=== PATIENT | male | born 1960 | race Caucasian/White ===

== ENCOUNTER 2018-05-06 09:42 | Emergency (ER) | payer OTHER ==
[2018-05-06] MEDS ORDERED: NS 0.9% 1000 ML* 2,000 ML IV ONE (10:30)
[2018-05-06] MEDS ORDERED: Ondansetron ODT TAB* 4 MG PO ONE (10:30)
[2018-05-06] MEDS ORDERED: Ketorolac INJ* 30 MG/ML 1 ML VIAL IV ONE (10:30)
[2018-05-06 11:11] LABS: Urine Appearance Clear; Urine Blood 1+ (Negative); Urine Color Yellow; Urine Ketones Negative (Negative); Urine Protein Negative (Negative); Urine Specific Gravity 1.017 (1.010-1.030); Urine Urobilinogen Negative (Negative)
[2018-05-06 11:21] LABS: ABS Basophils 0 10^3/ul (0-0.2); ABS Eosinophils 0.1 10^3/ul (0-0.6); ABS Lymphocytes 2.1 10^3/ul (1.0-4.8); ABS Monocytes 0.6 10^3/ul (0-0.8); ABS Neutrophils 3.5 10^3/ul (1.5-7.7); ABS Nucleated RBC 0 10^3/ul; Eosinophil % 1.7 % (0-6); Hematocrit 38 % (42-52); Hemoglobin 12.7 g/dl (14.0-18.0); Lymphocyte % 32.9 % (25-47); Mean Corpuscular HGB Conc 33 g/dl (31-36); Mean Corpuscular Hemoglobin 29 pg (27-31); Mean Corpuscular Volume 86 fL (80-94); Mean Platelet Volume 8.1 um3 (7.4-10.4); Nucleated Red Blood Cells % 0; Platelet Count 240 10^3/ul (150-450); Red Blood Count 4.43 10^6/ul (4.00-5.40); Red Cell Distribution Width 15 % (10.5-15); White Blood Count 6.4 10^3/ul (3.5-10.8)
[2018-05-06 11:30] LABS: INR 0.91 (0.77-1.02)
[2018-05-06 11:38] LABS: EGFR Non-African American 93.5 (>60)
--- NOTE | 2018-05-06 11:50 | RAD ---
Indication: Left flank pain. CT of the abdomen and pelvis was performed without oral or IV contrast administration. Coronal and sagittal reconstructed images were obtained. Lung bases demonstrate no pleural fluid, or alveolar consolidation. Nodule is noted in the left lower lobe which is not calcified. This measures approximately 3 mm. Large hiatal hernia is noted. Heart demonstrates no pericardial effusion. Liver is normal in size. No focal lesions or intrahepatic ductal dilatation the gallbladder demonstrates no calcified gallstones. No pericholecystic fluid or wall thickening is noted. The spleen is normal in size. No adrenal lesions are noted. No hydronephrosis is noted in either kidney. Cortical cysts are noted in the right kidney. No retroperitoneal lymphadenopathy is noted. Dilated loops of bowel are noted. Atherosclerotic aorta is noted. No aneurysmal dilatation. The colon is filled with stool. The appendix is visualized and is normal. There is diverticulosis without definite evidence of diverticulitis most prominent in the pelvis. The urinary bladder demonstrates diffuse wall thickening. Underlying infection is not totally excluded. No hernias are identified. IMPRESSION: No evidence of obstructive uropathy is noted. Hiatal hernia which appears to be unchanged from previous exam. Left lower lobe nodule which is stable since 2015. Diverticulosis without definite evidence of diverticulitis especially in the sigmoid colon.
[2018-05-06 12:24] VITALS: BP 180/99
--- NOTE | 2018-05-06 16:18 | ED ---
Anusha Quintanilla SooYoung, scribed for Rey Brown MD on 05/06/18 at 1020 . Back Pain - HPI Summary HPI Summary: A 58 y/o M presents to ED with c/o chronic L flank pain ongoing for past 6-8 months ago, with acute onset last week and worsening approximately 0030 this date. Pain did not wake pt from sleep. Pain is rated 8 out of 10 at bedside and is intermittent. Pain located in the LLQ/groin and radiates to L flank and mildly to L testicle. Denies recent trauma, denies urinary and bowel sx including dysuria, hematuria and melena, feeling bloated, nausea. Aggravating factors: movement. Pt has not taken any pain medication today. Pt sees Dr. Garsia, urology. PMHx: bladder CA, kidney stones, hernia. No PMHx diverticulosis. States today's pain does not feel the same as prev kidney stones. Childhood surgeries. No allergies. - History of Current Complaint Chief Complaint: EDFlankPain Stated Complaint: FLANK PAIN Time Seen by Provider: 05/06/18 10:14 Hx Obtained From: Patient Onset/Duration: Still Present Onset/Duration: Started Hours Ago, Atraumatic, Still Present Timing: Intermittent Back Pain Location: Is Discrete @ - LLQ, groin, Radiates To - L flank Severity Currently: Severe Pain Intensity: 8 Pain Scale Used: 0-10 Numeric Aggravating Symptom(s): Movement Associated Signs And Symptoms: Positive: Abdominal Pain, Flank Pain. Negative: Bladder Incontinence, Bowel Incontinence - Allergies/Home Medications Allergies/Adverse Reactions: Allergies Allergy/AdvReac Type Severity Reaction Status Date / Time No Known Allergies Allergy Verified 05/06/18 09:57 Home Medications: Home Medications Esomeprazole Magnesium [Nexium 24Hr] 20 mg PO DAILY 05/06/18 [History Confirmed 05/06/18] PMH/Surg Hx/FS Hx/Imm Hx Previously Healthy: No Endocrine/Hematology History: Denies: Hx Diabetes, Hx Thyroid Disease Cardiovascular History: Denies: Hx Hypertension Respiratory History: Denies: Hx Asthma, Hx Chronic Obstructive Pulmonary Disease (COPD) GI History: Reports: Other GI Disorders - OCCASIONAL INDIGESTION Denies: Hx Ulcer History: Reports: Hx Kidney Stones - HX OF (PASSED), Hx Renal Disease - HEMATURIA, Other Problems/Disorders - CAMCER OF BLADDER Dx 02/04/15 Musculoskeletal History: Reports: Hx Arthritis - HANDS, KNEES Sensory History: Reports: Hx Contacts or Glasses - GLASSES Opthamlomology History: Reports: Hx Contacts or Glasses - GLASSES - Cancer History Cancer Type, Location and Year: bladder cancer - Surgical History Surgery Procedure, Year, and Place: 1970 EXCISION OF SCAR TISSUE IN KIDNEY, [facility]. 1974 OPEN RIGHT KNEE SURGERY FOR TEAR, [facility]. 1978 & 1985 RIGHT SHOULDER SURGERY, [facility], 2 bladder surgeries Hx Anesthesia Reactions: No Infectious Disease History: No Infectious Disease History: Denies: Hx Clostridium Difficile, Hx Hepatitis, Hx Human Immunodeficiency Virus (HIV), Hx of Known/Suspected MRSA, Hx Shingles, Hx Tuberculosis, Hx Known/ Suspected VRE, Hx Known/Suspected VRSA, History Other Infectious Disease, Traveled Outside the in Last 30 Days - Family History Known Family History: Positive: Other - neg: anaesthesia reaction - Social History Occupation: Unemployed Lives: Alone Alcohol Use: Weekly Alcohol Amount: biweekly Hx Substance Use: Yes Substance Use Type: Reports: Marijuana Substance Use Comment - Amount & Last Used: 05/05 Hx Tobacco Use: Yes Smoking Status (MU): Light Every Day Tobacco Smoker Type: Cigarettes Amount Used/How Often: 1/2 PPD Length of Time of Smoking/Using Tobacco: 30 YEARS Have You Smoked in the Last Year: Yes Review of Systems Positive: Abdominal Pain - LLQ. Negative: Nausea, Other - neg: bloat Genitourinary: Other - pos: L-sided testicular pain Positive: flank pain. Negative: dysuria, hematuria, other - neg: melena Positive: Other - flank pain All Other Systems Reviewed And Are Negative: Yes Physical Exam - Summary Physical Exam Summary: General: well-appearing, mild pain distress Skin: warm, color reflects adequate perfusion, dry, no rash Head: normal Eyes: EOMI, STAN ENT: normal Neck: supple, nontender Respiratory: CTA, breath sounds present Cardiovascular: RRR Abdomen: soft, nontender Bowel: present Musculoskeletal: normal, strength/ROM intact Neurological: sensory/motor intact, A&O x3 Psychological: affect/mood appropriate Triage Information Reviewed: Yes Vital Signs On Initial Exam: Initial Vitals Temp Pulse Resp BP Pulse Ox 97.5 F 79 16 168/87 96 05/06/18 09:55 05/06/18 09:55 05/06/18 09:55 05/06/18 09:55 05/06/18 09:55 Vital Signs Reviewed: Yes Diagnostics - Vital Signs Vital Signs Temp Pulse Resp BP Pulse Ox 05/06/18 09:55 97.5 F 79 16 168/87 96 - Laboratory Lab Results: Lab Results 05/06/18 05/06/18 05/06/18 Range/Units 10:55 11:10 11:10 WBC 6.4 (3.5-10.8) 10^3/ul RBC 4.43 (4.00-5.40) 10^6/ul Hgb 12.7 L (14.0-18.0) g/dl Hct 38 L (42-52) % MCV 86 (80-94) fL MCH 29 (27-31) pg MCHC 33 (31-36) g/dl RDW 15 (10.5-15) % Plt Count 240 (150-450) 10^3/ul MPV 8.1 (7.4-10.4) um3 Neut % (Auto) 55.1 (38-83) % Lymph % (Auto) 32.9 (25-47) % [place] % (Auto) 9.8 H (0-7) % Eos % (Auto) 1.7 (0-6) % Baso % (Auto) 0.5 (0-2) % Absolute Neuts (auto) 3.5 (1.5-7.7) 10^3/ul Absolute Lymphs (auto) 2.1 (1.0-4.8) 10^3/ul Absolute Monos (auto) 0.6 (0-0.8) 10^3/ul Absolute Eos (auto) 0.1 (0-0.6) 10^3/ul Absolute Basos (auto) 0 (0-0.2) 10^3/ul Absolute Nucleated RBC 0 10^3/ul Nucleated RBC % 0 INR (Anticoag Therapy) 0.91 (0.77-1.02) APTT 27.6 (26.0-36.3) seconds Sodium (135-145) mmol/L Potassium (3.5-5.0) mmol/L Chloride (101-111) mmol/L Carbon Dioxide (22-32) mmol/L Anion Gap (2-11) mmol/L BUN (6-24) mg/dL Creatinine (0.67-1.17) mg/dL Est GFR ( Amer) (>60) Est GFR (Non-Af Amer) (>60) BUN/Creatinine Ratio (8-20) Glucose (70-100) mg/dL Lactic Acid (0.5-2.0) mmol/L Calcium (8.6-10.3) mg/dL Total Bilirubin (0.2-1.0) mg/dL AST (13-39) U/L ALT (7-52) U/L Alkaline Phosphatase (34-104) U/L C-Reactive Protein (<8.01) mg/L Total Protein (6.4-8.9) g/dL Albumin (3.2-5.2) g/dL Globulin (2-4) g/dL Albumin/Globulin Ratio (1-3) Lipase (11.0-82.0) U/L Urine Color Yellow Urine Appearance Clear Urine pH 5.0 (5-9) Ur Specific [place] 1.017 (1.010-1.030) Urine Protein Negative (Negative) Urine Ketones Negative (Negative) Urine Blood 1+ A (Negative) Urine Nitrate Negative (Negative) Urine Bilirubin Negative (Negative) Urine Urobilinogen Negative (Negative) Ur Leukocyte Esterase Negative (Negative) Urine WBC (Auto) Trace(0-5/hpf) (Absent) Urine RBC (Auto) Trace(0-2/hpf) (Absent) Urine Bacteria Absent (Absent) Urine Glucose Negative (Negative) 05/06/18 05/06/18 Range/Units 11:10 11:10 WBC (3.5-10.8) 10^3/ul RBC (4.00-5.40) 10^6/ul Hgb (14.0-18.0) g/dl Hct (42-52) % MCV (80-94) fL MCH (27-31) pg MCHC (31-36) g/dl RDW (10.5-15) % Plt Count (150-450) 10^3/ul MPV (7.4-10.4) um3 Neut % (Auto) (38-83) % Lymph % (Auto) (25-47) % [place] % (Auto) (0-7) % Eos % (Auto) (0-6) % Baso % (Auto) (0-2) % Absolute Neuts (auto) (1.5-7.7) 10^3/ul Absolute Lymphs (auto) (1.0-4.8) 10^3/ul Absolute Monos (auto) (0-0.8) 10^3/ul Absolute Eos (auto) (0-0.6) 10^3/ul Absolute Basos (auto) (0-0.2) 10^3/ul Absolute Nucleated RBC 10^3/ul Nucleated RBC % INR (Anticoag Therapy) (0.77-1.02) APTT (26.0-36.3) seconds Sodium 138 (135-145) mmol/L Potassium 3.9 (3.5-5.0) mmol/L Chloride 104 (101-111) mmol/L Carbon Dioxide 29 (22-32) mmol/L Anion Gap 5 (2-11) mmol/L BUN 15 (6-24) mg/dL Creatinine 0.84 (0.67-1.17) mg/dL Est GFR ( Amer) 113.2 (>60) Est GFR (Non-Af Amer) 93.5 (>60) BUN/Creatinine Ratio 17.9 (8-20) Glucose 85 (70-100) mg/dL Lactic Acid 0.5 (0.5-2.0) mmol/L Calcium 9.2 (8.6-10.3) mg/dL Total Bilirubin 0.40 (0.2-1.0) mg/dL AST 18 (13-39) U/L ALT 12 (7-52) U/L Alkaline Phosphatase 79 (34-104) U/L C-Reactive Protein 10.03 H (<8.01) mg/L Total Protein 6.6 (6.4-8.9) g/dL Albumin 3.8 (3.2-5.2) g/dL Globulin 2.8 (2-4) g/dL Albumin/Globulin Ratio 1.4 (1-3) Lipase 21 (11.0-82.0) U/L Urine Color Urine Appearance Urine pH (5-9) Ur Specific [place] (1.010-1.030) Urine Protein (Negative) Urine Ketones (Negative) Urine Blood (Negative) Urine Nitrate (Negative) Urine Bilirubin (Negative) Urine Urobilinogen (Negative) Ur Leukocyte Esterase (Negative) Urine WBC (Auto) (Absent) Urine RBC (Auto) (Absent) Urine Bacteria (Absent) Urine Glucose (Negative) Result Diagrams: 05/06/18 11:10 05/06/18 11:10 Lab Statement: Any lab studies that have been ordered have been reviewed, and results considered in the medical decision making process. - CT A/P CT CT Interpretation: Positive (See Comments) - IMPRESSION: No evidence of obstructive uropathy is noted. Hiatal hernia which appears to be unchanged from previous exam. Left lower lobe nodule which is stable since 2015. Diverticulosis without definite evidence of diverticulitis especially in the sigmoid colon. ED physician has reviewed this radiology report and agrees. CT Interpretation Completed By: Radiologist Re-Evaluation - Re-Evaluation 1 Re-Evaluation Time: 12:03 Change: Improved Comment: Discussing CT results with pt. Pt's pain still present, but decreased. Back Pain Course/Dx - Course Course Of Treatment: DISCUSSED RESULTS WITH THE PATIENT. WILL TREAT WITH CIPRO/ FLAGYL WITH CLOSE F/U WITH PMD AND UROLOGY. DISCUSSED RETURN TO ED IF WORSE. - Diagnoses Provider Diagnoses: Left sided abdominal pain, Left flank pain Discharge - Sign-Out/Discharge Documenting (check all that apply): Discharge/Admit/Transfer - Discharge Plan Condition: Stable Disposition: HOME Prescriptions: Ciprofloxacin TAB* [Cipro 500 MG TAB*] 500 mg PO BID #14 tab metroNIDAZOLE [Flagyl 500 MG TAB] 500 mg PO TID #21 tab traMADol TAB* [Ultram*] 50 mg PO Q6HR PRN #15 tab MDD 4 PRN Reason: Pain Patient Education Materials: Acute Abdominal Pain (ED) Referrals: Justin Rosenberg MD [Primary Care Provider] - Messi Garsia MD [Medical Doctor] - Additional Instructions: FOLLOW UP WITH YOUR PRIMARY CARE DOCTOR UROLOGY. RETURN TO THE EMERGENCY DEPARTMENT FOR ANY WORSENING OF YOUR CONDITION; PAIN, FEVER, YOU FEEL ILL, BLOOD IN YOUR URINE OR STOOL OR QUESTIONS OR CONCERNS. - Billing Disposition and Condition Condition: STABLE Disposition: Home The documentation as recorded by the Anusha barrientos SooYoung accurately reflects the service I personally performed and the decisions made by me, Rey Brown MD.
== END 2018-05-06 12:23 | disposition home or self-care (01) ==
LOC: ED 09:42
DX: R10.32 Left lower quadrant pain (principal); K44.9 Diaphragmatic hernia without obstruction or gangrene; R91.1 Solitary pulmonary nodule; K57.30 Diverticulosis of large intestine without perforation or abscess without bleeding; F17.210 Nicotine dependence, cigarettes, uncomplicated; Z85.51 Personal history of malignant neoplasm of bladder; Z87.442 Personal history of urinary calculi
CPT/HCPCS: 36415; 74176; 80053; 81003; 81015; 83605; 83690; 85025; 85610; 85730; 86140; 87086; 96361; 96374; 99282; A9270-GY; J1885

== ENCOUNTER 2023-04-25 05:39 | Observation (INO) ==
[2023-04-25] MEDS ORDERED: Buffered Lidocaine 1% SYRIN 1 ml INTRADERM ONE (06:00)
[2023-04-25] MEDS ORDERED: Lactated Ringers 1000 ml BAG 1,000 ML IV SCH (06:00)
[2023-04-25 06:31] LABS: Rapid COVID-19 Molecular Undetected (Undetected)
[2023-04-25] MEDS ORDERED: Lidocaine 2% PF 5 ML VIAL ONE (06:55)
[2023-04-25] MEDS ORDERED: Phenylephrine 40 mcg/mL 10mL (400mcg) SYRINGE ONE (06:55)
[2023-04-25] MEDS ORDERED: Ondansetron 4 mg VIAL 2 MG/ML 2 ml VIAL ONE (06:56)
[2023-04-25] MEDS ORDERED: Phenylephrine IV 10 MG/ML 1 ml VIAL ONE (06:56)
[2023-04-25] MEDS ORDERED: Glycopyrrolate IV 0.2 MG/ML 1 ML VIAL ONE (06:56)
[2023-04-25] MEDS ORDERED: Dexamethasone IV 4 MG/ML VIAL 1 ml VIAL ONE (06:56)
[2023-04-25] MEDS ORDERED: ceFAZolin 2 GM in NS PREMIX 2 GM/100 ML BAG IVPB ONE (07:01)
[2023-04-25] MEDS ORDERED: Midazolam 2 mg/2 ml VIAL 1 mg/ml 2 ml VIAL (2 mg) ONE (07:02)
[2023-04-25] MEDS ORDERED: fentaNYL 100 mcg/2 ml 50 MCG/ML VIAL ONE ×3 (07:02→11:25)
[2023-04-25] MEDS ORDERED: ROPIVACAINE 5 MG/ML 30 ML BTL (0.5%) ONE ×2 (07:12→07:46)
[2023-04-25] MEDS ORDERED: Midazolam 5 mg/5 ml VIAL 1 mg/ml 5 ml VIAL (5 mg) ONE (07:12)
[2023-04-25] MEDS ORDERED: fentaNYL 100 mcg/2 ml 50 MCG/ML VIAL IV PRN (08:11)
[2023-04-25] MEDS ORDERED: Naloxone 0.4 mg VIAL 0.4 mg/ml 1 ml VIAL IV PRN (08:11)
[2023-04-25] MEDS ORDERED: Ketamine HCL 50 mg/ml 10 ml VIAL (500 MG) ONE (08:15)
[2023-04-25] MEDS ORDERED: Metoclopramide 5 MG/ML VIAL (10 mg) ONE (08:28)
[2023-04-25] MEDS ORDERED: Acetaminophen IV 1 GM/100ML 1,000 MG/100 ML BAG IV ONE (08:33)
[2023-04-25] MEDS ORDERED: Lactulose 30 ml UDC PO PRN (09:03)
[2023-04-25] MEDS ORDERED: Ondansetron 4 mg VIAL 2 MG/ML 2 ml VIAL IV PRN (09:03)
[2023-04-25] MEDS ORDERED: Magnesium Hydroxide LIQ 30 ML UDC PO PRN (09:03)
[2023-04-25] MEDS ORDERED: Ondansetron ODT 4 mg TAB 4 MG TAB PO PRN (09:03)
[2023-04-25] MEDS ORDERED: Propofol 10 MG/ML 20 ML BTL ONE (09:26)
[2023-04-25] MEDS ORDERED: Sevoflurane BOTTLE ONE (09:40)
[2023-04-25] MEDS ORDERED: HYDROmorphone 1 MG/1 ML SYRINGE ONE (10:59)
[2023-04-25] MEDS: HYDROmorphone 1 MG/1 ML SYRINGE IV PRN ×2 (10:59→11:13)
[2023-04-25] MEDS: Lactated Ringers 1000 ml BAG 1,000 ML IV SCH ×2 (13:20→23:36)
[2023-04-25] MEDS: Morphine 2 MG/ML SYRINGE IV PRN ×2 (13:29→19:08)
[2023-04-25] MEDS ORDERED: Dextrose 50% Syringe 50 ml 25 GM/50 ML SYRINGE IV PUSH PRN (13:52)
[2023-04-25] MEDS ORDERED: Albuterol HFA INHALER 8 gm MDI INH PRN (14:12)
[2023-04-25] MEDS: ceFAZolin 1 GM ADVAN 1 GM in NS 0.9% 50 ML 50 ML IVPB SCH (18:09)
[2023-04-25] MEDS: Mometasone/Formoter 200/5 MDI INH SCH (19:56)
[2023-04-25] MEDS: Magnesium Hydroxide LIQ 30 ML UDC PO SCH (20:19)
[2023-04-25] MEDS ORDERED: Insulin GLARGINE 100 un/ml 10 ml VIAL SUBCUT SCH (21:00)
[2023-04-26] MEDS: Morphine 2 MG/ML SYRINGE IV PRN (01:07)
[2023-04-26] MEDS: ceFAZolin 1 GM ADVAN 1 GM in NS 0.9% 50 ML 50 ML IVPB SCH ×2 (01:54→09:43)
[2023-04-26 06:12] LABS: Hematocrit 32.3 % (38-53); Hemoglobin 10.8 g/dL (13.2-16.3); Mean Platelet Volume 8.7 fL (7.5-11.2); Platelet Count 319 10^3/uL (150-450)
[2023-04-26 06:37] LABS: Creatinine, Serum 1.04 mg/dL (0.67-1.17); Potassium 4.2 mmol/L (3.5-5.0); eGFR CKD-EPI 80.2 (>60)
[2023-04-26] MEDS: Mometasone/Formoter 200/5 MDI INH SCH (07:14)
[2023-04-26] MEDS ORDERED: NON FORMULARY MED (Multivitamin Tablet) PO SCH (09:00)
[2023-04-26] MEDS ORDERED: Insulin GLARGINE 100 un/ml 10 ml VIAL SUBCUT SCH (09:00)
[2023-04-26] MEDS ORDERED: SPIRIVA Respimat (tiotropium) 2.5 mcg/inh Inhaler INH SCH (09:00)
[2023-04-26] MEDS ORDERED: Vitamin THERAPEUTIC TAB PO SCH (09:00)
[2023-04-26] MEDS: Magnesium Hydroxide LIQ 30 ML UDC PO SCH (09:13)
[2023-04-26 10:20] VITALS: BP 142/71
== END 2023-04-26 13:00 | disposition home or self-care (01) ==
LOC: AA 05:39 → INTOOBSV 05:39 → SSU 12:18
PROVIDERS: ADMIT Orthopaedic Surgery Adult Reconstructive Orthopaedic Surgery; ATTEND Orthopaedic Surgery Adult Reconstructive Orthopaedic Surgery